=== PATIENT | male | born 1985 | race Caucasian/White ===

== ENCOUNTER 2020-11-18 12:56 | Emergency (ER) | payer OTHER ==
[2020-11-18] MEDS ORDERED: Aspirin 81 MG Tab.Chew PO ONE (13:06)
--- NOTE | 2020-11-18 13:06 | EDM.PDOC ---
ED HPI GENERAL MEDICAL PROBLEM - General Chief Complaint: Chest Pain Time Seen by Provider: 11/18/20 12:56 Source of Information: Reports: Patient, Provider (ABEL Almazan at [facility]), RN, RN Notes Reviewed, Other (Josie from [facility]) History Limitations: Reports: No Limitations - History of Present Illness INITIAL COMMENTS - FREE TEXT/NARRATIVE: Evelio is a 35 y/o male who presents to the ED via personal vehicle at the request of [facility] Laundry Tub Maker, Dr. Newman. Per patient, he has been experiencing transient chest pain for the past five days; he is not currently experiencing chest pain. The patient was evaluated at [facility] by RADHA Almazan for the pain and was sent home following an EKG. Review of the EKG by Dr. Newman was performed, who stated the patient should immediately present to this facility due to concerns of recent MD. The patient denies recent illness, palpitations, shortness of breath, nausea, vomiting, or abdominal pain. He states he broke some right ribs five days ago and has been taking pain medication for the fractures. - Related Data Allergies Allergy/AdvReac Type Severity Reaction Status Date / Time Penicillins Allergy Other Verified 11/18/20 13:11 Home Meds: Home Meds Hydrocodone/Acetaminophen [HYDROcodone-Acetaminophen 5-325 MG] 1 each PO DAILY 11/18/20 [History] Past Medical History HEENT History: Reports: None Cardiovascular History: Reports: None Respiratory History: Reports: None Gastrointestinal History: Reports: None Genitourinary History: Reports: None Musculoskeletal History: Reports: None Neurological History: Reports: None Psychiatric History: Reports: None Endocrine/Metabolic History: Reports: None Hematologic History: Reports: None Immunologic History: Reports: None Oncologic (Cancer) History: Reports: None Dermatologic History: Reports: None - Infectious Disease History Infectious Disease History: Reports: None - Past Surgical History Head Surgeries/Procedures: Reports: None Social & Family History - Family History Family Medical History: No Pertinent Family History ED ROS GENERAL - Review of Systems Review Of Systems: Comprehensive ROS is negative, except as noted in HPI. ED EXAM, GENERAL - Physical Exam Exam: See Below Exam Limited By: No Limitations General Appearance: Alert, No Apparent Distress Eye Exam: Bilateral Eye: EOMI, Normal Inspection, PERRL (3mm) Ears: Normal External Exam, Normal Canal, Hearing Grossly Normal, Normal TMs Nose: Normal Inspection, Normal Mucosa, No Blood Throat/Mouth: Normal Inspection, Normal Lips, Normal Teeth, Normal Gums, Normal Oropharynx, Normal Voice, No Airway Compromise Head: Atraumatic, Normocephalic Neck: Normal Inspection, Supple, Non-Tender, Full Range of Motion Respiratory/Chest: No Respiratory Distress, Lungs Clear, Normal Breath Sounds, No Accessory Muscle Use, Chest Non-Tender Cardiovascular: Normal Peripheral Pulses, Regular Rate, Rhythm, No Edema, No Gallop, No JVD, No Murmur, No Rub, Other (Denies pain at this time) Peripheral Pulses: 2+: Radial (L), Radial (R) GI/Abdominal: Normal Bowel Sounds, Soft, Non-Tender, No Distention, No Abnormal Bruit, No Mass, Pelvis Stable (Male) Exam: Deferred Rectal (Males) Exam: Deferred Back Exam: Normal Inspection, Full Range of Motion Extremities: Normal Inspection, Normal Range of Motion, Non-Tender, Normal Capillary Refill, No Pedal Edema Neurological: Alert, Oriented, CN II-XII Intact, Normal Cognition, Normal Gait, Normal Reflexes, No Motor/Sensory Deficits Psychiatric: Normal Affect, Normal Mood Skin Exam: Warm, Intact, Normal Color, No Rash, Diaphoretic. No: Cyanosis, Jaundice, Mottled, Pallor Lymphatic: No Adenopathy #1 Interpretation EKG Date: 11/18/20 Time: 13:02 Rhythm: Other (Sinus Tachycardia) Rate (Beats/Min): 103 [place]: Normal P-Wave: Present QRS: Wide (0.133) ST-T: Normal QT: Normal SD/PQ Interval: 0.152 Comparison: NA - No Prior EKG EKG Interpretation Comments: ST; q-wave in III; No evidence of acute myocardial ischemia #2 Interpretation EKG Date: 11/18/20 Time: 13:41 Rhythm: NSR Rate (Beats/Min): 95 [place]: Normal P-Wave: Present QRS: Wide (0.133) ST-T: Normal QT: Normal SD/PQ Interval: 0.149 Comparison: No Change EKG Interpretation Comments: Posterior EKG; NSR; q-wave in III; No evidence of acute myocardial ischemia Course - Vital Signs Last Recorded V/S: Last Vital Signs Temp 98.3 F 11/18/20 13:00 Pulse 103 H 11/18/20 13:00 Resp 16 11/18/20 13:00 BP 145/96 H 11/18/20 13:00 Pulse Ox 99 11/18/20 13:00 - Orders/Labs/Meds Orders: Active Orders 24 hr Category Date Time Status EKG Documentation Completion [RC] STAT Care 11/18/20 13:02 Active Heparin Sodium/0.45% NaCl [Heparin 25,000 Units in 1/2 Med 11/18/20 13:30 Active NS 500 ML] 25,000 units in 500 ml IV TITRATE Medication Orders Heparin Sodium/Sodium Chloride (Heparin 25,000 Units In 1/2 Ns 500 Ml) 25,000 units in 500 mls @ 19.508 mls/hr IV TITRATE DI; Protocol Last Admin: 11/18/20 14:55 Dose: 8 units/kg/hr, 19.508 mls/hr Documented by: LAI Cosigned by: LILLY Labs: Laboratory Tests 11/18/20 11/18/20 Range/Units 13:06 13:06 WBC 7.4 (5.0-10.0) 10^3/uL RBC 5.40 (4.6-6.2) 10^6/uL Hgb 15.0 (14.0-18.0) g/dL Hct 44.7 (40.0-54.0) % MCV 82.8 (80-100) fL MCH 27.8 (27.0-34.0) pg MCHC 33.6 (33.0-35.0) g/dL Plt Count 334 (150-450) 10^3/uL Neut % (Auto) 67.7 (42.2-75.2) % Lymph % (Auto) 24.2 (20.5-50.1) % [place] % (Auto) 7.7 (2-8) % Eos % (Auto) 0.3 L (1.0-3.0) % Baso % (Auto) 0.1 (0.0-1.0) % Sodium 141 (136-145) mmol/L Potassium 4.7 (3.5-5.1) mmol/L Chloride 102 (98-107) mmol/L Carbon Dioxide 28 (21-32) mmol/L Anion Gap 15.7 H (7-13) mEq/L BUN 17 (7-18) mg/dL Creatinine 1.05 (0.70-1.30) mg/dL Est Cr Clr Drug Dosing 112.03 mL/min Estimated GFR (MDRD) > 60 BUN/Creatinine Ratio 16.2 (No establ ref range) Glucose 106 H (70-99) mg/dL Calcium 9.1 (8.5-10.1) mg/dL Total Bilirubin 0.4 (0.2-1.0) mg/dL AST 26 (15-37) U/L ALT 48 (16-63) U/L Alkaline Phosphatase 58 (46-116) U/L Troponin I High Sens < 4 (<=76) pg/mL Total Protein 8.0 (6.4-8.2) g/dL Albumin 4.3 (3.4-5.0) g/dL Globulin 3.7 Albumin/Globulin Ratio 1.2 Meds: Medications Generic Name Dose Route Start Last Admin Trade Name Freq PRN Reason Stop Dose Admin Heparin Sodium/Sodium Chloride 25,000 units in 500 mls @ 19.508 mls/hr 11/18/20 13:30 11/18/20 14:55 Heparin 25,000 Units In 1/2 Ns 500 Ml IV 8 units/kg/hr TITRATE DI 19.508 mls/hr Administration Protocol 8 UNITS/KG/HR Discontinued Medications Generic Name Dose Route Start Last Admin Trade Name Freq PRN Reason Stop Dose Admin Hydrocodone Bitart/Acetaminophen 1 tab 11/18/20 15:15 Acetaminophen/Hydrocodone 325-5 Mg Tab PO 11/18/20 15:16 ONETIME ONE Aspirin 324 mg 11/18/20 13:06 11/18/20 13:13 Aspirin 81 Mg Tab.Chew PO 11/18/20 13:07 324 mg ONETIME ONE Administration Heparin Sodium (Porcine) 4,000 units 11/18/20 13:20 11/18/20 14:52 Heparin Sodium 5,000 Units/Ml Vial IVPUSH 11/18/20 13:21 4,000 units .BOLUS ONE Administration - Re-Assessments/Exams Free Text/Narrative Re-Assessment/Exam: 11/18/20 ASA 324mg PO administered. Will start heparin gtt following EKG. Weather check for Guardian flight performed. Sorting And Folding Supervisor spoke with Dr. Newman about repeat EKG; he states no evidence of myocardial ischemia. He is requesting a posterior EKG be performed. Guardian f light instructed to stand down at this time. Troponin negative. Posterior EKG unremarkable for evidence of ischemia. Dr. Newman is requesting patient be monitored for cardiac changes, including ECHO with troponin trend. [facility] is currently full with no beds available. ECHO unavailable at this facility until November 30. Case discussed with Dr. Lai, hospitalist at [facility] who kindly agreed to accept patient for transfer. Findings of examination, lab work, and imaging reviewed with patient and . Discussion with Dr. Newman reviewed, as well as need for ongoing cardiac monitoring, including ECHO. Patient is agreeable with transfer to [facility]. All questions from patient and answered at this time. Departure - Departure Time of Disposition: 15:30 Disposition: DC/Tfer to [facility] 02 Reason for Transfer *Q: Primary PCI Indicated Condition: Fair Clinical Impression: Left upper extremity numbness Chest pain Qualifiers: Chest pain type: other chest pain Qualified Code(s): R07.89 - Other chest pain Referrals: PCP,None [Primary Care Provider] - Forms: ED Department Discharge, Interfacility Transfer [facility] Sepsis Event Note (ED) - Focused Exam Vital Signs: Vital Signs Temp Pulse Resp BP Pulse Ox 11/18/20 13:00 98.3 F 103 H 16 145/96 H 99 - My Orders Last 24 Hours: My Active Orders 11/18/20 13:02 EKG Documentation Completion [RC] STAT 11/18/20 13:30 Heparin Sodium/0.45% NaCl [Heparin 25,000 Units in 1/2 NS 500 ML] 25,000 units in 500 ml IV TITRATE - Assessment/Plan Last 24 Hours: My Active Orders 11/18/20 13:02 EKG Documentation Completion [RC] STAT 11/18/20 13:30 Heparin Sodium/0.45% NaCl [Heparin 25,000 Units in 1/2 NS 500 ML] 25,000 units in 500 ml IV TITRATE
[2020-11-18] MEDS ORDERED: Heparin Sodium 5,000 Units/ML Vial IVPUSH ONE (13:20)
[2020-11-18] MEDS ORDERED: Heparin Sodium/0.45% NaCl 25,000 UNITS/500 ML BAG IV SCH (13:30)
[2020-11-18 13:34] LABS: ANION GAP 15.7 mEq/L (7-13); CHLORIDE,CL 102 mmol/L (98-107); SODIUM,NA 141 mmol/L (136-145)
--- NOTE | 2020-11-18 13:37 | CR ---
EXAMINATION: Chest 1V Frontal SEX: Male AGE: 35 years CLINICAL HISTORY: 35-year-old male complaining of CHEST PAIN. No comparison films immediately available. Interpretation: Negative. 1. Normal cardiac silhouette (size and configuration). External cardiac rehabilitation specialist leads. Left-sided aortic arch. 2. No pulmonary vascular congestion, cephalization of flow, alveolar edema or dependent pleural fluid accumulation (no pleural effusions). 3. No lung mass or hilar lymphadenopathy. 4. No alveolar infiltrate, air bronchograms, atelectasis/collapse, or peripheral "groundglass" interstitial lung densities. 5. No pneumothorax or pneumomediastinum. No free subdiaphragmatic air. Tracheobronchial airway unremarkable.
[2020-11-18] MEDS ORDERED: Acetaminophen/HYDROcodone 325-5 MG Tab PO ONE (15:15)
== END 2020-11-18 15:30 ==
LOC: DL.ED 12:56 → EDBD 12:56 → DL.ED 15:30
DX: R07.89 Other chest pain (principal); R20.0 Anesthesia of skin; Z88.0 Allergy status to penicillin
CPT/HCPCS: 36415; 71045; 80053; 84484; 85025; 93005; 93010; 96365; 99284; 99285-25; A9270-GY; J1644

== ENCOUNTER 2020-11-24 13:34 | Emergency (ER) | payer OTHER ==
--- NOTE | 2020-11-24 14:01 | EDM.PDOC ---
ED HPI GENERAL MEDICAL PROBLEM - General Chief Complaint: Cardiovascular Problem Stated Complaint: [id number] HIGH BLOOD PRESSURE FEELS WEIRD Time Seen by Provider: 11/24/20 14:01 Source of Information: Reports: Patient, Old Records, RN, RN Notes Reviewed History Limitations: Reports: No Limitations - History of Present Illness INITIAL COMMENTS - FREE TEXT/NARRATIVE: Patient presents to ED by POV after eating lunch. Said he just didn't feel right, like his heart was going to jump out of his chest. He went to the clinic and his blood pressure was 157/90. Denies chest pain and no other complaints. Now feels back to normal. Onset: Today Duration: Constant Location: Reports: Generalized Quality: Reports: Other (Denies pain) Severity: Severe Improves with: Reports: None Worsens with: Reports: None Associated Symptoms: Reports: No Other Symptoms - Related Data Allergies Allergy/AdvReac Type Severity Reaction Status Date / Time Penicillins Allergy Other Verified 11/18/20 13:11 Home Meds: Home Meds Hydrocodone/Acetaminophen [HYDROcodone-Acetaminophen 5-325 MG] 1 each PO DAILY 11/18/20 [History] Past Medical History HEENT History: Reports: None Cardiovascular History: Reports: Hypertension Respiratory History: Reports: None Gastrointestinal History: Reports: None Genitourinary History: Reports: None Neurological History: Reports: None Psychiatric History: Reports: None Endocrine/Metabolic History: Reports: None Hematologic History: Reports: None Immunologic History: Reports: None Oncologic (Cancer) History: Reports: None Dermatologic History: Reports: None - Infectious Disease History Infectious Disease History: Reports: None - Past Surgical History Head Surgeries/Procedures: Reports: None Social & Family History - Family History Family Medical History: No Pertinent Family History - Tobacco Use Tobacco Use Status *Q: Never Tobacco User - Caffeine Use Caffeine Use: Reports: Soda - Alcohol Use Alcohol Use History: No Alcohol Use in Last Twelve Months: No - Living Situation & Occupation Living situation: Reports: , with Spouse Occupation: Employed ED ROS GENERAL - Review of Systems Review Of Systems: Comprehensive ROS is negative, except as noted in HPI. ED EXAM, GENERAL - Physical Exam Exam: See Below Exam Limited By: No Limitations General Appearance: Alert, WD/WN, No Apparent Distress Eye Exam: Bilateral Eye: EOMI, Normal Inspection, PERRL Ears: Normal External Exam, Normal Canal, Hearing Grossly Normal, Normal TMs Nose: Normal Inspection, Normal Mucosa, No Blood Head: Atraumatic, Normocephalic Neck: Normal Inspection, Supple, Non-Tender, Full Range of Motion Respiratory/Chest: No Respiratory Distress, Lungs Clear, Normal Breath Sounds, No Accessory Muscle Use, Chest Non-Tender Cardiovascular: Normal Peripheral Pulses, Regular Rate, Rhythm, No Edema, No Gallop, No JVD, No Murmur, No Rub GI/Abdominal: Normal Bowel Sounds, Soft, Non-Tender, No Organomegaly, No Distention, No Abnormal Bruit, No Mass (Male) Exam: Deferred Rectal (Males) Exam: Deferred Back Exam: Normal Inspection, Full Range of Motion, NT Extremities: Normal Inspection, Normal Range of Motion, Non-Tender, Normal Capillary Refill, No Pedal Edema Neurological: Alert Psychiatric: Normal Affect, Normal Mood Skin Exam: Warm, Dry, Intact, Normal Color, No Rash #2 Interpretation EKG Date: 11/24/20 Time: 14:14 Rhythm: Other (sinus rhythm) Rate (Beats/Min): 94 [place]: Normal P-Wave: Present QRS: Normal ST-T: Normal QT: Normal Course - Vital Signs Last Recorded V/S: Last Vital Signs Temp 98.2 F 11/24/20 13:50 Pulse 81 11/24/20 13:50 Resp 16 11/24/20 13:50 BP 146/78 H 11/24/20 13:50 Pulse Ox 100 11/24/20 13:50 Orthostatic Blood Pressure [ 130/88 Standing] Orthostatic Blood Pressure [ 143/89 Sitting] Orthostatic Blood Pressure [ 121/84 Supine] - Orders/Labs/Meds Orders: Active Orders 24 hr Category Date Time Status Peripheral IV Insertion Adult [OM.PC] Stat Oth 11/24/20 14:32 Ordered Labs: Laboratory Tests 11/24/20 11/24/20 11/24/20 Range/Units 14:46 14:46 14:46 WBC 6.6 (5.0-10.0) 10^3/uL RBC 5.01 (4.6-6.2) 10^6/uL Hgb 13.8 L (14.0-18.0) g/dL Hct 41.7 (40.0-54.0) % MCV 83.2 (80-100) fL MCH 27.5 (27.0-34.0) pg MCHC 33.1 (33.0-35.0) g/dL Plt Count 305 (150-450) 10^3/uL Neut % (Auto) 67.6 (42.2-75.2) % Lymph % (Auto) 22.4 (20.5-50.1) % [place] % (Auto) 9.1 H (2-8) % Eos % (Auto) 0.6 L (1.0-3.0) % Baso % (Auto) 0.3 (0.0-1.0) % D-Dimer, Quantitative 124 (0-400) ng/mL Sodium 140 (136-145) mmol/L Potassium 4.0 (3.5-5.1) mmol/L Chloride 102 (98-107) mmol/L Carbon Dioxide 29 (21-32) mmol/L Anion Gap 13.0 (7-13) mEq/L BUN 14 (7-18) mg/dL Creatinine 1.32 H (0.70-1.30) mg/dL Est Cr Clr Drug Dosing 86.55 mL/min Estimated GFR (MDRD) > 60 BUN/Creatinine Ratio 10.6 (No establ ref range) Glucose 113 H (70-99) mg/dL Calcium 9.0 (8.5-10.1) mg/dL Magnesium 2.1 (1.8-2.4) mg/dL Total Bilirubin 0.4 (0.2-1.0) mg/dL AST 20 (15-37) U/L ALT 42 (16-63) U/L Alkaline Phosphatase 61 (46-116) U/L Troponin I High Sens 6 (<=76) pg/mL Total Protein 7.8 (6.4-8.2) g/dL Albumin 4.3 (3.4-5.0) g/dL Globulin 3.5 Albumin/Globulin Ratio 1.2 TSH, Ultra Sensitive 2.88 (0.36-3.74) uIU/mL Meds: Medications Discontinued Medications Generic Name Dose Route Start Last Admin Trade Name Freq PRN Reason Stop Dose Admin Sodium Chloride 10 ml 11/24/20 14:32 11/24/20 14:54 Sodium Chloride 0.9% 10 Ml Syringe FLUSH 10 ml ASDIRECTED PRN Administration Keep Vein Open Departure - Departure Time of Disposition: 16:09 Disposition: Home, Self-Care 01 Condition: Good Clinical Impression: Vasovagal episode, Encounter for medical screening examination Instructions: Near-Syncope, [id number], Medical Screening Exam Forms: ED Department Discharge Additional Instructions: Continue current medications as prescribed. Drink plenty of water to stay well hydrated. Follow up in clinic with your primary doctor in the next week for recheck. Sepsis Event Note (ED) - Focused Exam Vital Signs: Vital Signs Temp Pulse Resp BP Pulse Ox 11/24/20 13:50 98.2 F 81 16 146/78 H 100 - My Orders Last 24 Hours: My Active Orders 11/24/20 14:32 Peripheral IV Insertion Adult [OM.PC] Stat - Assessment/Plan Last 24 Hours: My Active Orders 11/24/20 14:32 Peripheral IV Insertion Adult [OM.PC] Stat
[2020-11-24] MEDS ORDERED: Sodium Chloride 0.9% 10 ML Syringe FLUSH PRN (14:32)
[2020-11-24 15:32] LABS: CHLORIDE,CL 102 mmol/L (98-107); SODIUM,NA 140 mmol/L (136-145)
== END 2020-11-24 16:21 | disposition home or self-care (01) ==
LOC: DL.ED 13:34
DX: R55 Syncope and collapse (principal); I10 Essential (primary) hypertension; Z88.0 Allergy status to penicillin
CPT/HCPCS: 36415; 80053; 83735; 84443; 84484; 85025; 85379; 93005; 99283-25